=== PATIENT | male | born 1980 | race Two or more races ===

== ENCOUNTER 2018-03-21 22:37 | Emergency (ER) | payer OTHER ==
[~2018-03-21] VITALS: Ht 185.4 cm; Wt 151.5 kg
[2018-03-21 22:52] VITALS: BP 157/107
== END 2018-03-22 00:03 | disposition home or self-care (01) ==
LOC: ER 22:40
DX: R07.89 Other chest pain (principal); F41.9 Anxiety disorder, unspecified; I10 Essential (primary) hypertension; Z90.49 Acquired absence of other specified parts of digestive tract; Z87.891 Personal history of nicotine dependence
CPT/HCPCS: 93005; 99283; A4606; Z7610

== ENCOUNTER 2018-05-13 19:20 | Emergency (ER) | payer OTHER ==
[~2018-05-13] VITALS: Ht 188 cm; Wt 145.1 kg
--- NOTE | 2018-05-13 19:35 | NUR ---
37 y/o male BIB self, with chief complaint of slip and fall at home. Patient c/o left rib pain 3/10 at sitting position, worsening with movement. Pt also c/o left wrist pain. Pt in no acute distress, VS wnl
[2018-05-13] MEDS ORDERED: HYDROCODONE/APAP 5/325MG 1 EACH TABLET PO ONE (20:00)
[2018-05-13 21:20] VITALS: BP 125/65
== END 2018-05-13 20:03 | disposition home or self-care (01) ==
LOC: ER 19:20
DX: S00.83XA Contusion of other part of head, initial encounter (principal); S20.212A Contusion of left front wall of thorax, initial encounter; S69.82XA Other specified injuries of left wrist, hand and finger(s), initial encounter; I10 Essential (primary) hypertension; F41.9 Anxiety disorder, unspecified; Z90.49 Acquired absence of other specified parts of digestive tract; Z87.891 Personal history of nicotine dependence; W01.0XXA Fall on same level from slipping, tripping and stumbling without subsequent striking against object, initial encounter; Y93.E1 Activity, personal bathing and showering; Y92.091 Bathroom in other non-institutional residence as the place of occurrence of the external cause; Y99.8 Other external cause status
CPT/HCPCS: 29125; 71100; 73130; 99284; A4606; Z7610

== ENCOUNTER 2019-06-11 01:04 | Emergency (ER) | payer OTHER ==
[~2019-06-11] VITALS: Ht 185.4 cm; Wt 151.0 kg
--- NOTE | 2019-06-11 01:23 | NUR ---
CAME TO ER WITH FOR C/O ABDOMINAL PAIN AND NAUSEA SINCE YESTERDAY. STATES FEVER TODAY
[2019-06-11] MEDS ORDERED: IV NS 0.9% 1,000 ML BAG IV ONE (01:30)
[2019-06-11] MEDS ORDERED: ONDANSETRON HCL/PF 4 MG/2 ML VIAL IVP ONE (01:30)
[2019-06-11] MEDS ORDERED: KETOROLAC TROMETHAMINE INJ 30 MG/ML VIAL IV ONE (01:30)
[2019-06-11] MEDS ORDERED: ONDANSETRON HCL/PF 4 MG/2 ML VIAL ONE (01:33)
[2019-06-11] MEDS ORDERED: KETOROLAC TROMETHAMINE INJ 30 MG/ML VIAL ONE (01:33)
[2019-06-11 01:35] LABS: BASOPHILS % (AUTO) 0.3 % (0.0-2.0); EOSINOPHILS % (AUTO) 1.4 % (0.0-6.0); HEMATOCRIT 46 % (39-51); HEMOGLOBIN 15.8 g/dL (13.5-17.5); LYMPHOCYTES # (AUTO) 3.6 /CMM (0.8-4.8); LYMPHOCYTES % (AUTO) 29.5 % (20.0-44.0); MEAN CORPUSCULAR HGB CONC 34 g/dl (31.0-36.0); MEAN CORPUSCULAR VOLUME 85 fL (80-96); MONOCYTES % (AUTO) 7.9 % (2.0-12.0); NEUTROPHILS # (AUTO) 7.4 /CMM (1.8-8.9); NEUTROPHILS % (AUTO) 60.9 % (43.0-81.0); PLATELET COUNT (AUTO) 218 /CMM (150-450); RED BLOOD CELL COUNT(AUTO) 5.41 MIL/uL (4.5-6.0); WHITE BLOOD COUNT (AUTO) 12.2 K/uL (4.3-11.0)
[2019-06-11 01:43] LABS: CALCIUM, SERUM 9.9 mg/dL (8.5-10.1); CREATININE 1.2 mg/dL (0.6-1.3)
--- NOTE | 2019-06-11 01:44 | NUR ---
PT LEFT FOR CT SCAN AND CXR
[2019-06-11 01:49] LABS: ALBUMIN 3.6 g/dL (3.4-5.0); BILIRUBIN,DIRECT 0.1 mg/dL (0.0-0.2); BILIRUBIN,TOTAL 0.3 mg/dL (0.2-1.0)
[2019-06-11 02:49] LABS: APPEARANCE,URINE CLEAR (CLEAR); BILIRUBIN,URINE NEGATIVE (NEGATIVE); BLOOD, URINE TRACE-INTA Ery/uL (NEGATIVE); COLOR,URINE YELLOW (YELLOW); KETONES,URINE NEGATIVE (NEGATIVE); LEUKOCYTE ESTERASE ,URINE NEGATIVE (NEGATIVE); NITRITE, URINE NEGATIVE (NEGATIVE); PROTEIN,URINE NEGATIVE (NEGATIVE); UGLUCOSE NEGATIVE (NEGATIVE); UROBILINOGEN,URINE 0.2 EU/dL (0.2)
[2019-06-11] MEDS ORDERED: PIPERACILLIN /TAZOBACTAM 3.375 G VIAL IV ONE (02:57)
[2019-06-11] MEDS ORDERED: PIPERACILLIN /TAZOBACTAM 3.375 G in IV D5W 50 ML IV ONE (03:00)
[2019-06-11 03:03] LABS: BACTERIA,URINE Rare /HPF (None Seen); RBC,URINE 0-2 /HPF (0-2); SQUAMOUS EPITHELIAL CELL,UR Rare /HPF (None Seen); WBC,URINE 0-2 /HPF (0-3)
[2019-06-11 03:18] VITALS: BP 138/84
--- NOTE | 2019-06-11 03:21 | NUR ---
Patient discharged to home in stable condition. Prescriptions and Written and verbal after care instructions given. Patient verbalizes understanding of instruction.
== END 2019-06-11 03:20 | disposition home or self-care (01) ==
LOC: ER 01:08
DX: K57.32 Diverticulitis of large intestine without perforation or abscess without bleeding (principal); E66.01 Morbid (severe) obesity due to excess calories; I10 Essential (primary) hypertension; F41.9 Anxiety disorder, unspecified; Z87.891 Personal history of nicotine dependence; Z90.49 Acquired absence of other specified parts of digestive tract
CPT/HCPCS: 36415; 71045; 74176; 80048; 80076; 81001; 85025; 96365; 96375; 99284; J1885; J2543 ×2; J7030; J7060; 81000-TC; J2405